=== PATIENT | female | born 1975 | race African-American/Black ===

== ENCOUNTER 2017-02-10 10:10 | Emergency (ER) | payer SELFPAY ==
[~2017-02-10] VITALS: Ht 152.4 cm; Wt 76.2 kg
[2017-02-10] MEDS ORDERED: ASPIRIN 81 MG TABLET CHEW ONE (11:12)
[2017-02-10] MEDS ORDERED: MORPHINE SULFATE 4 MG/ML, 1ML ONE (11:12)
[2017-02-10] MEDS ORDERED: ONDANSETRON 2MG/ML, 2ML ONE (11:12)
[2017-02-10] MEDS ORDERED: ONDANSETRON 2MG/ML, 2ML IVPush ONE (11:30)
[2017-02-10] MEDS ORDERED: SODIUM CHLORIDE FLUSH 10ML SYR IVF ONE (11:30)
[2017-02-10] MEDS ORDERED: MORPHINE SULFATE 4 MG/ML, 1ML IVPush PRN (11:30)
[2017-02-10] MEDS ORDERED: ASPIRIN 81 MG TABLET CHEW PO ONE (11:30)
[2017-02-10 11:42] LABS: BLOOD UREA NITROGEN 5 mg/dL (7-18)
[2017-02-10 11:47] LABS: ASPARTATE AMINO TRANSFERASE 16 U/L (15-37)
[2017-02-10 11:56] LABS: IS PT STATUS REG ER OR PRE ER? YES
[2017-02-10] MEDS ORDERED: IBUPROFEN 200 MG TABLET ONE (12:56)
[2017-02-10] MEDS ORDERED: IBUPROFEN 200 MG TABLET PO ONE (13:00)
[2017-02-10 13:18] VITALS: BP 137/80
== END 2017-02-10 13:20 | disposition home or self-care (01) ==
LOC: ED 11:44
DX: R07.89 Other chest pain (principal)
CPT/HCPCS: 36415; 71010; 80053; 84484; 85025; 93005